=== PATIENT | female | born 1960 | race Caucasian/White ===

== ENCOUNTER 2019-11-30 14:06 | Observation (INO) | payer BC ==
[2019-11-30] MEDS ORDERED: Iron Sucrose Complex 200 MG in Sodium Chloride 0.9% 100 ML IV ONE (14:11)
[2019-11-30] MEDS ORDERED: traMADol 50 MG Tab PO PRN (15:24)
[2019-11-30] MEDS ORDERED: diphenhydrAMINE 50 MG/ML SDV IVPUSH PRN (15:25)
--- NOTE | 2019-11-30 15:28 | PCM.HP.2 ---
H&P History of Present Illness - General Date of Service: 11/30/19 Admit Problem/Dx: Admission Diagnosis/Problem Admission Diagnosis/Problem Anemia due to unknown mechanism - History of Present Illness Initial Comments - Free Text/Narative: See clinic documentation Headache Pain Score (Numeric/FACES): 6 - Related Data Allergies/Adverse Reactions: Allergies Allergy/AdvReac Type Severity Reaction Status Date / Time beclomethasone dipropionate Allergy Anaphylactic Verified 10/24/18 05:40 [From Beconase AQ] Shock bee pollen [Bee Pollen] Allergy Anaphylactic Verified 10/24/18 05:40 Shock clarithromycin [From Biaxin] Allergy Anaphylactic Verified 10/24/18 05:40 Shock flunisolide Allergy Other Verified 10/24/18 05:40 morphine Allergy Anaphylactic Verified 10/24/18 05:40 Shock omeprazole Allergy Hives Verified 10/24/18 05:40 ondansetron HCl Allergy Liver Verified 10/24/18 05:40 [From Zofran (as Problems hydrochloride)] ranitidine Allergy Rash Verified 10/24/18 05:40 Sulfa (Sulfonamide Allergy Anaphylactic Verified 10/24/18 05:40 Antibiotics) Shock sumatriptan [From Imitrex] Allergy Anaphylactic Verified 10/24/18 05:40 Shock sumatriptan succinate Allergy Anaphylactic Verified 10/24/18 05:40 [From Imitrex] Shock Home Medications: Home Meds Albuterol/Ipratropium [DuoNeb 3.0-0.5 MG/3 ML] 0.5 - 2.5 ml INH Q4H PRN [History] Cyclobenzaprine [Flexeril] 10 mg PO TID PRN 04/21/15 [History] FLUoxetine [PROzac] 4 cap PO QAM 04/21/15 [History] Ibuprofen [Motrin] 800 mg PO TID PRN 04/21/15 [History] Levothyroxine 112 mcg PO DAILY 04/21/15 [History] PHENobarb/Hyoscy/Atropine/Scop [ Tablet] 1 tab PO Q8H PRN 04/21/15 [ History] Pantoprazole Sodium [Protonix] 20 mg PO BID 04/21/15 [History] Rizatriptan Benzoate [Maxalt] 5 mg PO ASDIRECTED PRN 03/10/17 [History] Past Medical History Other Musculoskeletal History: Right Bicep tendon tear H&P Review of Systems - Review of Systems: Review Of Systems: See Below Exam - Exam Exam: See Below - Vital Signs Vital Signs: Last Vital Signs Temp 97.8 F 11/30/19 14:10 Pulse 91 11/30/19 14:10 Resp 16 11/30/19 14:10 BP 122/68 11/30/19 14:10 Pulse Ox 100 11/30/19 14:10 - Patient Data Lab Results Last 24 hrs: Laboratory Results - last 24 hr 11/30/19 11/30/19 Range/Units 14:22 14:22 WBC 5.3 (4.0-11.0) K/uL RBC 3.14 L (3.80-5.80) M/uL Hgb 7.5 L (11.5-16.5) g/dL Hct 25.4 L (37.0-47.0) % MCV 81 (76-96) fL MCH 23.9 L (27.0-32.0) pg MCHC 29.5 L (31.0-35.0) g/dL RDW 15.3 (11.0-16.0) % Plt Count 365 (150-500) K/uL MPV 7.9 (6.0-10.0) fL Neut % (Auto) 67.0 (45.0-70.0) % Lymph % (Auto) 21.0 (20.0-40.0) % [place] % (Auto) 7.8 (3.0-10.0) % Eos % (Auto) 3.8 (1.0-5.0) % Baso % (Auto) 0.4 (0.0-0.5) % Neut # (Auto) 3.52 (2.00-7.50) K/uL Lymph # (Auto) 1.10 L (1.50-4.00) K/uL [place] # (Auto) 0.41 (0.20-0.80) K/uL Eos # (Auto) 0.20 (0.04-0.40) K/uL Baso # (Auto) 0.02 (0.02-0.10) K/uL Sodium 139 (136-145) mmol/L Potassium 3.9 (3.5-5.1) mmol/L Chloride 106 (98-107) mmol/L Carbon Dioxide 21.8 (21.0-32.0) mmol/L Anion Gap 15.1 H (5.0-15.0) mmol/L BUN 13 (8-26) mg/dL Creatinine 1.02 (0.55-1.02) mg/dL Est Cr Clr Drug Dosing TNP Estimated GFR (MDRD) 55 L (>60) MLS/MIN BUN/Creatinine Ratio 12.7 (6-25) Glucose 194 H D (74-100) mg/dL Calcium 7.6 L (8.5-10.1) mg/dL Total Bilirubin 0.2 (0.0-1.0) mg/dL AST 21 (15-37) U/L ALT 26 (12-78) U/L Alkaline Phosphatase 69 (46-116) U/L Total Protein 6.1 L (6.4-8.2) g/dL Albumin 2.9 L (3.4-5.0) g/dL Globulin 3.2 (2.2-4.2) g/dL Albumin/Globulin Ratio 0.9 (0.8-2.0) Result Diagrams: 11/30/19 14:22 11/30/19 14:22 Sepsis Event Note - Focused Exam Vital Signs: Vital Signs Temp Pulse Resp BP Pulse Ox 11/30/19 14:10 97.8 F 91 16 122/68 100 Date Exam was Performed: 11/30/19 Time Exam was Performed: 15:26 *Q Meaningful Use (ADM) - VTE *Q VTE Pharmacological Contraindications *Q: Patient has Severe Anemia Problem List Initiated/Reviewed/Updated: Yes Orders Last 24hrs: Active Orders 24 hr Category Date Time Status Admission Status [Patient Status] [ADT] Routine ADT 11/30/19 15:19 Ordered Hemoccult [Fecal Occult Blood Collection] [RC] Care 11/30/19 14:17 Active ASDIRECTED Verify Patient Consent Obtain [RC] ASDIRECTED Care 11/30/19 14:13 Active Regular Diet [DIET] Diet 11/30/19 Dinner Ordered RED BLOOD CELLS LP [BBK] Stat Lab 11/30/19 14:23 Received TYPE AND SCREEN [BBK] Stat Lab 11/30/19 14:23 Received UA RFX CARLOS AND CULT IF INDIC [URIN] Stat Lab 11/30/19 14:17 Ordered HYDROmorphone [Dilaudid] Med 11/30/19 15:22 Ordered 0.25 mg IVPUSH Q3H PRN Sodium Chloride 0.9% [Normal Saline] 1,000 ml Med 11/30/19 14:15 Active IV ASDIRECTED diphenhydrAMINE [Benadryl] Med 11/30/19 15:25 Ordered 25 mg IVPUSH Q6H PRN traMADol [Ultram] Med 11/30/19 15:24 Ordered 50 mg PO Q4H PRN Blood Transfusion Reflex Set [OM.PC] Routine Oth 11/30/19 14:12 Ordered Transfuse Red Blood Cells [COMM] Stat Oth 11/30/19 14:12 Ordered Medication Orders Diphenhydramine HCl (Benadryl) 25 mg IVPUSH Q6H PRN PRN Reason: Itching Hydromorphone HCl (Dilaudid) 0.25 mg IVPUSH Q3H PRN PRN Reason: Pain (moderate 4-6) Sodium Chloride (Normal Saline) 1,000 mls @ 50 mls/hr IV ASDIRECTED STEFAN Tramadol HCl (Ultram) 50 mg PO Q4H PRN PRN Reason: Pain (mild 1-3) - Mortality Measure Prognosis:: Good
[2019-11-30] MEDS: Sodium Chloride 0.9% 1,000 ML IV SCH (15:51)
[2019-11-30] MEDS ORDERED: HYDROmorphone 2 MG/ML SDV ONE ×2 (15:53→19:19)
[2019-11-30] MEDS: HYDROmorphone 2 MG/ML Syringe IVPUSH PRN ×3 (15:55→23:20)
[2019-11-30] MEDS ORDERED: traMADol 50 MG Tab ONE (16:52)
[2019-12-01] MEDS: HYDROmorphone 2 MG/ML Syringe IVPUSH PRN ×2 (02:30→08:43)
[2019-12-01] MEDS: Sodium Chloride 0.9% 1,000 ML IV SCH (06:24)
[2019-12-01] MEDS ORDERED: HYDROmorphone 2 MG/ML SDV ONE (08:38)
[2019-12-01 08:47] VITALS: BP 129/76; PULSE 74
--- NOTE | 2019-12-01 12:40 | DISCH ---
ADMISSION DIAGNOSES: 1. Anemia. 2. Weakness. DISCHARGE DIAGNOSES: 1. Anemia. 2. Weakness. HOSPITAL COURSE: This 58-year-old woman was admitted by Dr. Teran yesterday for significant symptomatic anemia with weakness and dizziness that she had a hemoglobin of 7.5. She has been followed by Dr. Dalal for this. She has history of a gastric bypass and had recently discontinued taking her iron supplements for this. She has a low ferritin level according to Dr. Teran. Her hemoglobin was 7.5 on admission. Her last colonoscopy was over 10 years ago, but nothing significant was found at that time. She has no history of melena or hematemesis. She is on vitamin B12 supplementation and that is being monitored. She received 2 units of packed red cells. Repeat hemoglobin this morning was 9.5, and she was feeling much better with regard to her strength, etc,. Her vital signs remained stable. She showed no evidence of hypotension while in the hospital. She will be followed up as an outpatient and seen by Dr. Dalal later on next week, and a repeat hemoglobin has been requested. It is also noteworthy that her stool hemoccults have not been obtained as she has not had a bowel movement since admission. A kit will therefore be sent home with her and she can provide this from home. All questions were answered. She will resume taking her iron supplements. MAREN /[id number]
== END 2019-12-01 10:07 | disposition home or self-care (01) ==
LOC: LB.BLOODTR 14:06 → LB.MS 15:19
PROVIDERS: ADMIT Family Medicine; ATTEND Family Medicine
DX: D64.9 Anemia, unspecified (principal); Z98.84 Bariatric surgery status; Z98.890 Other specified postprocedural states; Z88.5 Allergy status to narcotic agent; Z88.1 Allergy status to other antibiotic agents; Z91.030 Bee allergy status; Z88.8 Allergy status to other drugs, medicaments and biological substances; Z88.2 Allergy status to sulfonamides; Z79.899 Other long term (current) drug therapy
CPT/HCPCS: 36415; 36430; 80053; 81003; 82310; 85018; 85025; 86850; 86900; 86901; 86920; 86922; 96361; 96365; 96375; 96376; A9270-GY; G0378; J1170; J1756; J7030; J7050; P9016

== ENCOUNTER 2019-12-14 12:02 | Day surgery (SDC) | payer BC ==
[~2019-12-14 12:02] MED LIST: Metoclopramide 10 MG/2 ML SDV IV PRN
[2019-12-14] MEDS: Sodium Chloride 0.9% 1,000 ML IV SCH (12:35)
[2019-12-14] MEDS ORDERED: ePHEDrine 50 MG/ML SDV ONE (14:20)
[2019-12-14] MEDS ORDERED: Propofol 1,000 MG/100 ML SDV ONE (14:20)
[2019-12-14 15:00] VITALS: BP 144/59; PULSE 86
[2019-12-14] MEDS: Pneumococcal Polyvalent-23 Vaccine 0.5 ML SDV IM ONE (16:08)
--- NOTE | 2019-12-14 20:50 | OR ---
DATE OF OPERATION: 12/14/2019 SURGEON: Odell Pedraza MD PREOPERATIVE DIAGNOSIS: Screening colonoscopy. POSTOPERATIVE DIAGNOSIS: Screening colonoscopy. PROCEDURE PERFORMED: Screening colonoscopy/incomplete colonoscopy. ANESTHESIA: MAC. ESTIMATED BLOOD LOSS: None. COMPLICATIONS: None. INDICATION FOR THE PROCEDURE: The patient is a 59-year-old female who last had a colonoscopy 12 years ago. Denies any change in bowel habits since that time. She is here today for screening colonoscopy. DESCRIPTION OF THE PROCEDURE: Informed consent was obtained from the patient. The patient was taken to the operating room and placed on the table in left lateral decubitus position. Monitored anesthesia care was administered. Digital rectal exam performed and was normal. Colonoscope then advanced through the anus, directed toward the cecum, did reach the sigmoid colon, unable to negotiate through the sigmoid colon, had quite tight corner, adult colonoscope then withdrawn. The pediatric colonoscope then reinserted. I was able to reach the same corner in the sigmoid colon again, unable to negotiate past it. The patient was flipped back on her back, still unable to get through, some time was spent trying to negotiate this corner, however eventually aborted the procedure. Colonoscope was then withdrawn. Rectum and distal sigmoid were normal. FINDINGS: Incomplete colonoscopy. RECOMMENDATIONS: We will set up patient for CT colonography in [place] at a later date. ALBERTO/LEYDA /[id number]
== END 2019-12-14 15:40 | disposition home or self-care (01) ==
LOC: LB.SDS 12:02
PROVIDERS: ATTEND Surgery
DX: Z12.11 Encounter for screening for malignant neoplasm of colon (principal); D50.9 Iron deficiency anemia, unspecified; Z88.8 Allergy status to other drugs, medicaments and biological substances; Z88.2 Allergy status to sulfonamides; Z79.899 Other long term (current) drug therapy; Z90.49 Acquired absence of other specified parts of digestive tract; Z98.890 Other specified postprocedural states
CPT/HCPCS: 45330; G0121; J2704; J7030

== ENCOUNTER 2020-06-22 13:23 | Emergency (ER) | payer BC, OTHER ==
--- NOTE | 2020-06-22 13:55 | EDM.PDOC ---
ED HPI GENERAL MEDICAL PROBLEM - General Chief Complaint: Lower Extremity Injury/Pain Stated Complaint: Right Foot Pain Time Seen by Provider: 06/22/20 13:45 Source of Information: Reports: Patient History Limitations: Reports: No Limitations - History of Present Illness INITIAL COMMENTS - FREE TEXT/NARRATIVE: Pt is s/o right foot 1st MT surgery beginning of May. Wound dehisced a few weeks later and pt wound was steri-stripped and casted. She has been following with [facility] who had her Augmentin for 10 days. A new cast was applied 2 days ago and steri-strips came off and dressing and now cast his rubbing against her skin. She is afraid of new infection as a result. Onset: Today Quality: Reports: Pressure Severity: Mild Improves with: Reports: Rest Worsens with: Reports: Movement Associated Symptoms: Reports: No Other Symptoms. Denies: Fever/Chills - Related Data Allergies Allergy/AdvReac Type Severity Reaction Status Date / Time beclomethasone dipropionate Allergy Anaphylactic Verified 12/12/19 11:10 [From Beconase AQ] Shock bee pollen [Bee Pollen] Allergy Anaphylactic Verified 12/12/19 11:10 Shock clarithromycin [From Biaxin] Allergy Anaphylactic Verified 12/12/19 11:10 Shock flunisolide Allergy Other Verified 12/12/19 11:10 morphine Allergy Anaphylactic Verified 12/12/19 11:10 Shock omeprazole Allergy Hives Verified 12/12/19 11:10 ondansetron HCl Allergy Liver Verified 12/12/19 11:10 [From Zofran (as Problems hydrochloride)] ranitidine Allergy Rash Verified 12/12/19 11:10 Sulfa (Sulfonamide Allergy Anaphylactic Verified 12/12/19 11:10 Antibiotics) Shock sumatriptan [From Imitrex] Allergy Anaphylactic Verified 12/12/19 11:10 Shock sumatriptan succinate Allergy Anaphylactic Verified 12/01/19 03:59 [From Imitrex] Shock Home Meds: Home Meds Cyclobenzaprine [Flexeril] 10 mg PO TID PRN 04/21/15 [History] FLUoxetine [PROzac] 2 cap PO QAM 04/21/15 [History] Ibuprofen [Motrin] 800 mg PO TID PRN 04/21/15 [History] Levothyroxine 137 mcg PO DAILY 04/21/15 [History] Pantoprazole Sodium [Protonix] 20 mg PO DAILY 04/21/15 [History] Calcium Carbonate/Vitamin D3 [Caltrate 600 Plus D3 Tablet] 1 tab PO DAILY 11/30/19 [History] Iron,Carbonyl/Ascorbic Acid [Vitron-C Tablet] 1 each PO DAILY 12/12/19 [History] Mecobalamin [B12 Active] 500 mcg PO DAILY 12/12/19 [History] Past Medical History HEENT History: Reports: Other (See Below) Other HEENT History: six sinus surgeries Respiratory History: Reports: Asthma, Pneumonia, Recurrent Gastrointestinal History: Reports: Other (See Below) Other Gastrointestinal History: Gastric bypass 2002 Genitourinary History: Reports: Other (See Below) Other Genitourinary History: 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: Musculoskeletal History: Reports: Fibromyalgia, Other (See Below) Other Musculoskeletal History: Right Bicep tendon tear Foot surgery Neurological History: Reports: Migraines, Other (See Below) Other Neuro History: Restless legs Psychiatric History: Reports: Depression Endocrine/Metabolic History: Reports: Hypothyroidism Hematologic History: Reports: Blood Transfusion(s), Iron Deficiency, Other (See Below) Dermatologic History: Reports: Other (See Below) Other Dermatologic History: scratches on right arm - Past Surgical History HEENT Surgical History: Reports: Naso-Sinus Surgery GI Surgical History: Reports: Colonoscopy Endocrine Surgical History: Reports: None Dermatological Surgical History: Reports: None Social & Family History - Family History Family Medical History: Noncontributory - Caffeine Use Caffeine Use: Reports: Coffee Review of Systems - Review of Systems Review Of Systems: See Below Constitutional: Reports: No Symptoms. Denies: Fever Respiratory: Reports: No Symptoms Cardiovascular: Reports: No Symptoms GI/Abdominal: Reports: No Symptoms Musculoskeletal: Reports: Foot Pain, Joint Pain Skin: Reports: Wound Neurological: Reports: No Symptoms ED EXAM, GENERAL - Physical Exam Exam: See Below Exam Limited By: No Limitations General Appearance: Alert, WD/WN, No Apparent Distress Head: Atraumatic, Normocephalic Neck: Normal Inspection, Supple Respiratory/Chest: No Respiratory Distress, Lungs Clear Cardiovascular: Normal Peripheral Pulses, Regular Rate, Rhythm Neurological: Alert, Oriented, CN II-XII Intact Psychiatric: Normal Affect Skin Exam: Warm, Dry, Normal Color Course - Vital Signs Last Recorded V/S: Last Vital Signs Temp 97.7 F 06/22/20 14:00 Pulse 81 06/22/20 14:00 Resp 16 06/22/20 14:00 BP 133/75 06/22/20 14:00 Pulse Ox 100 06/22/20 14:00 - Re-Assessments/Exams Free Text/Narrative Re-Assessment/Exam: 06/22/20 14:03 Pt had cast removed and wound evaluated, no evidence of infection, no redness, no swelling. Pt's had splint replacement and bulky dressing for padding as well as steri- strip across surgical site. Departure - Departure Time of Disposition: 14:06 Disposition: Home, Self-Care 01 Condition: Good Clinical Impression: Encounter for post surgical wound check - Discharge Information *PRESCRIPTION DRUG MONITORING PROGRAM REVIEWED*: No *COPY OF PRESCRIPTION DRUG MONITORING REPORT IN PATIENT GALINA: No Referrals: Darshana Biswas RN [Primary Care Provider] - Forms: ED Department Discharge Sepsis Event Note (ED) - Focused Exam Vital Signs: Vital Signs Temp Pulse Resp BP Pulse Ox 06/22/20 14:00 97.7 F 81 16 133/75 100
[2020-06-22 14:02] VITALS: BP 133/75; PULSE 81
== END 2020-06-22 14:45 | disposition home or self-care (01) ==
LOC: LB.ED 13:23
DX: Z48.817 Encounter for surgical aftercare following surgery on the skin and subcutaneous tissue (principal); J45.909 Unspecified asthma, uncomplicated; F32.9 Major depressive disorder, single episode, unspecified; E03.9 Hypothyroidism, unspecified; Z88.8 Allergy status to other drugs, medicaments and biological substances; Z91.030 Bee allergy status; Z88.1 Allergy status to other antibiotic agents; Z88.5 Allergy status to narcotic agent; Z88.2 Allergy status to sulfonamides; Z79.899 Other long term (current) drug therapy
CPT/HCPCS: 99282

== ENCOUNTER 2020-11-23 05:17 | Emergency (ER) | payer BC ==
[2020-11-23] MEDS ORDERED: Ketorolac 60 MG/2 ML SDV IVPUSH ONE (07:32)
[2020-11-23] MEDS ORDERED: HYDROmorphone 2 MG/ML SDV IVPUSH ONE ×2 (07:33→09:48)
[2020-11-23] MEDS ORDERED: LORazepam 0.5 MG Tab PO ONE (07:49)
[2020-11-23 08:29] VITALS: BP 104/56
[2020-11-23] MEDS ORDERED: HYDROmorphone 2 MG/ML SDV ONE (09:55)
[2020-11-23] MEDS ORDERED: Acetaminophen/HYDROcodone 325-5 MG Tab ONE (13:00)
[2020-11-23 13:07] VITALS: PULSE 89
--- NOTE | 2020-11-23 13:10 | EDM.PDOC ---
ED HPI GENERAL MEDICAL PROBLEM - General Chief Complaint: Upper Extremity Injury/Pain Stated Complaint: Left Shoulder Pain Time Seen by Provider: 11/23/20 07:00 Source of Information: Reports: Patient History Limitations: Reports: No Limitations. Denies: Altered Mental Status - History of Present Illness INITIAL COMMENTS - FREE TEXT/NARRATIVE: Patient presented to ER at 7 am with c/o left shoulder pain. Rates pain a 10. States something happened on night while sleeping. She has been scheduled for surgery on December 05. During Wednesday she had to take a total of 2 vicoden, a motrin, flexeril before any relief. States this is unbearable at this time . The pain is sharp ,constant & does not radiates . denies fever ,N/V ,chest pain ,shortness of breath ,cough , wheezing, abdominal pain Onset: Today, Sudden (2) Treatments SLING OPERATOR: Reports: NSAIDS, Other (see below) Other Treatments SLING OPERATOR: vicoden Left Upper Shoulder Pain Score (Numeric/FACES): 5 - Related Data Allergies Allergy/AdvReac Type Severity Reaction Status Date / Time beclomethasone dipropionate Allergy Anaphylactic Verified 12/12/19 11:10 [From Beconase AQ] Shock bee pollen [Bee Pollen] Allergy Anaphylactic Verified 12/12/19 11:10 Shock clarithromycin [From Biaxin] Allergy Anaphylactic Verified 12/12/19 11:10 Shock flunisolide Allergy Other Verified 12/12/19 11:10 morphine Allergy Anaphylactic Verified 12/12/19 11:10 Shock omeprazole Allergy Hives Verified 12/12/19 11:10 ondansetron HCl Allergy Liver Verified 12/12/19 11:10 [From Zofran (as Problems hydrochloride)] ranitidine Allergy Rash Verified 12/12/19 11:10 Sulfa (Sulfonamide Allergy Anaphylactic Verified 12/12/19 11:10 Antibiotics) Shock sumatriptan [From Imitrex] Allergy Anaphylactic Verified 12/12/19 11:10 Shock sumatriptan succinate Allergy Anaphylactic Verified 12/01/19 03:59 [From Imitrex] Shock Home Meds: Home Meds Cyclobenzaprine [Flexeril] 10 mg PO TID PRN 04/21/15 [History] FLUoxetine [PROzac] 2 cap PO QAM 04/21/15 [History] Ibuprofen [Motrin] 800 mg PO TID PRN 04/21/15 [History] Levothyroxine 137 mcg PO DAILY 04/21/15 [History] Pantoprazole Sodium [Protonix] 20 mg PO DAILY 04/21/15 [History] Calcium Carbonate/Vitamin D3 [Caltrate 600 Plus D3 Tablet] 1 tab PO DAILY 11/30/19 [History] Iron,Carbonyl/Ascorbic Acid [Vitron-C Tablet] 1 each PO DAILY 12/12/19 [History] Mecobalamin [B12 Active] 500 mcg PO DAILY 12/12/19 [History] Acetaminophen/HYDROcodone [[place] 325-5 MG] 1 tab PO 11/23/20 [History] Cholecalciferol (Vitamin D3) [Vitamin D] 1 tab PO DAILY 11/23/20 [History] Past Medical History HEENT History: Reports: Other (See Below) Other HEENT History: six sinus surgeries Respiratory History: Reports: Asthma, Pneumonia, Recurrent Gastrointestinal History: Reports: Other (See Below) Other Gastrointestinal History: Gastric bypass 2002 Genitourinary History: Reports: Other (See Below) Other Genitourinary History: 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: Musculoskeletal History: Reports: Fibromyalgia, Other (See Below) Other Musculoskeletal History: Right Bicep tendon tear Foot surgery, Torn AC left shoulder Neurological History: Reports: Migraines, Other (See Below) Other Neuro History: Restless legs Psychiatric History: Reports: Depression Endocrine/Metabolic History: Reports: Hypothyroidism Hematologic History: Reports: Blood Transfusion(s), Iron Deficiency, Other (See Below) Dermatologic History: Reports: Other (See Below) Other Dermatologic History: scratches on right arm - Infectious Disease History Infectious Disease History: Reports: Chicken Pox, Mumps - Past Surgical History HEENT Surgical History: Reports: Naso-Sinus Surgery GI Surgical History: Reports: Colonoscopy Endocrine Surgical History: Reports: None Dermatological Surgical History: Reports: None Social & Family History - Family History Family Medical History: No Pertinent Family History - Tobacco Use Tobacco Use Status *Q: Never Tobacco User - Caffeine Use Caffeine Use: Reports: Coffee - Recreational Drug Use Recreational Drug Use: No Review of Systems - Review of Systems Review Of Systems: See Below Constitutional: Reports: No Symptoms Respiratory: Reports: No Symptoms, Shortness of Breath, Wheezing, Cough, Sputum Cardiovascular: Reports: No Symptoms, Chest Pain, Irregular Heart Rate GI/Abdominal: Reports: No Symptoms Genitourinary: Reports: No Symptoms Musculoskeletal: Reports: Shoulder Pain (sharp pain located on left shoulder ) ED EXAM, GENERAL - Physical Exam Exam: See Below Exam Limited By: No Limitations General Appearance: Alert, WD/WN, No Apparent Distress Head: Atraumatic, Normocephalic Neck: Normal Inspection Respiratory/Chest: No Respiratory Distress, Lungs Clear, Normal Breath Sounds, No Accessory Muscle Use, Chest Non-Tender Cardiovascular: Normal Peripheral Pulses, Regular Rate, Rhythm, No Edema, No Gallop, No JVD, No Murmur, No Rub GI/Abdominal: Normal Bowel Sounds Extremities: Other (no swelling or redness of left shoulder,tenderness present on left shoulder ) Neurological: Alert, Oriented, CN II-XII Intact Course - Vital Signs Text/Narrative:: 59 year old female came with left shoulder pain Vitals monitored X ray done that shows severe osteoarthritic changes . Patient was in sever pain ,I gave her iv Toradol. wait for some time for some improvement ,but pain did not subside I gave her 2 mg of Dilaudid I/V ,there is some improvement - 0.5 mg given orally - she went into sleep inj Dilaudid 2mg repeated . The pain is reduced . discuss with patient that we are sending her home Vicodin as needed Last Recorded V/S: Last Vital Signs Temp 96.7 F L 11/23/20 07:36 Pulse 89 11/23/20 13:07 Resp 14 11/23/20 13:07 BP 104/56 L 11/23/20 08:26 Pulse Ox 96 11/23/20 13:07 - Orders/Labs/Meds Orders: Active Orders 24 hr Category Date Time Status Shoulder Comp Lt [CR] Stat Exams 11/23/20 12:52 Taken Meds: Medications Discontinued Medications Generic Name Dose Route Start Last Admin Trade Name Freq PRN Reason Stop Dose Admin Hydromorphone HCl 2 mg 11/23/20 07:33 11/23/20 07:34 Dilaudid IVPUSH 11/23/20 07:34 2 mg ONETIME ONE Administration Hydromorphone HCl 2 mg 11/23/20 09:48 11/23/20 09:51 Dilaudid IVPUSH 11/23/20 09:49 2 mg ONETIME ONE Administration Hydromorphone HCl Confirm 11/23/20 09:55 11/23/20 09:49 Dilaudid Administered 11/23/20 09:56 Not Given Dose 2 mg .ROUTE .STK-MED ONE Ketorolac Tromethamine 15 mg 11/23/20 07:32 11/23/20 07:34 Toradol IVPUSH 11/23/20 07:33 15 mg ONETIME ONE Administration Lorazepam 0.5 mg 11/23/20 07:49 11/23/20 07:49 Ativan PO 11/23/20 07:50 0.5 mg ONETIME ONE Administration Departure - Departure Time of Disposition: 14:00 Disposition: Home, Self-Care 01 Condition: Fair Clinical Impression: Shoulder pain Qualifiers: Chronicity: acute Laterality: left Qualified Code(s): M25.512 - Pain in left shoulder - Discharge Information *PRESCRIPTION DRUG MONITORING PROGRAM REVIEWED*: No *COPY OF PRESCRIPTION DRUG MONITORING REPORT IN PATIENT GALINA: No Instructions: Acetaminophen; Hydrocodone tablets or capsules, Shoulder Pain Referrals: PCP,None [Primary Care Provider] - Forms: ED Department Discharge Care Plan Goals: Take one vicoden every 4 hours as directed. Sepsis Event Note (ED) - Evaluation Sepsis Screening Result: No Definite Risk - Focused Exam Vital Signs: Vital Signs Temp Pulse Resp BP Pulse Ox 11/23/20 13:07 89 14 96 11/23/20 08:48 14 97 11/23/20 08:26 107 H 14 104/56 L 94 L 11/23/20 07:36 96.7 F L 103 H 16 104/59 L 99 - Problem List & Annotations (1) Shoulder pain, left SNOMED Code(s): 46634212, [id number] Code(s): M25.512 - PAIN IN LEFT SHOULDER Status: Acute Priority: Medium Annotation/Comment:: take pain medication only when needed Qualifiers: Chronicity: acute Qualified Code(s): M25.512 - Pain in left shoulder - My Orders Last 24 Hours: My Active Orders 11/23/20 12:52 Shoulder Comp Lt [CR] Stat - Assessment/Plan Last 24 Hours: My Active Orders 11/23/20 12:52 Shoulder Comp Lt [CR] Stat
--- NOTE | 2020-11-25 07:12 | CR ---
Date of Service: 11/23/20 Clinical Data: pain LEFT SHOULDER: No priors. There are severe osteoarthritic changes of the glenohumeral joint. There are osteoarthritic changes of the AC joint. No acute fracture or dislocation. No focal lytic or blastic bone lesions. [id number] [facility]
== END 2020-11-23 13:30 | disposition home or self-care (01) ==
LOC: LB.ED 05:17
DX: M25.512 Pain in left shoulder (principal); J45.909 Unspecified asthma, uncomplicated; E03.9 Hypothyroidism, unspecified; Z88.8 Allergy status to other drugs, medicaments and biological substances; Z91.030 Bee allergy status; Z88.1 Allergy status to other antibiotic agents; Z88.5 Allergy status to narcotic agent; Z88.2 Allergy status to sulfonamides; Z79.899 Other long term (current) drug therapy
CPT/HCPCS: 73030; 96374; 96375; 96376; 99283; A9270; J1170; J1885; 99284

== ENCOUNTER 2021-05-29 18:14 | Emergency (ER) | payer BC ==
[2021-05-29] MEDS ORDERED: HYDROmorphone 4 MG/ML Syringe SUBCUT PRN (18:28)
[2021-05-29] MEDS: HYDROmorphone 4 MG/ML Syringe SUBCUT ONE (18:30)
[2021-05-29 18:35] VITALS: BP 137/86; PULSE 77
[2021-05-29] MEDS: Ondansetron 4 MG Tab.DIS PO ONE (18:36)
[2021-05-29] MEDS ORDERED: Sodium Chloride 0.9% 10 ML Syringe FLUSH PRN (18:51)
[2021-05-29] MEDS: Ketorolac 60 MG/2 ML SDV IVPUSH ONE (18:58)
[2021-05-29] MEDS ORDERED: Acetaminophen/oxyCODONE 325-5 MG Tab ONE (19:00)
[2021-05-29] MEDS: HYDROmorphone 2 MG/ML SDV IVPUSH ONE (19:01)
[2021-05-29] MEDS: HYDROmorphone 2 MG/ML SDV ONE (19:05)
--- NOTE | 2021-05-29 19:14 | EDM.PDOC ---
ED HPI GENERAL MEDICAL PROBLEM - General Chief Complaint: Upper Extremity Injury/Pain Stated Complaint: Left shoulder pain Time Seen by Provider: 05/29/21 18:30 - History of Present Illness INITIAL COMMENTS - FREE TEXT/NARRATIVE: Patient comes to the ER with family members with complaints of an acute injury to the left shoulder. She tells me that she had reconstructive shoulder surgery last November, and things had been going fairly well. She knows that she is been overdoing it lately due to multiple issues involving her family. Today she was in the restroom taking down her pants when a sharp painful sensation happened on the posterior lateral aspect of the left shoulder. It seems to radiate towards the middle of her back and there is a zinging sensation going part way down her arm. She states that the pain is currently 9 or 10/10. Patient is unable to move her left arm. She denies any numbness or discoloration of the forearm hand or fingers. Patient has been taking ibuprofen 400 mg a couple of times today only for pain control. Left Shoulder Pain Score (Numeric/FACES): 10 - Related Data Allergies Allergy/AdvReac Type Severity Reaction Status Date / Time beclomethasone dipropionate Allergy Anaphylactic Verified 05/29/21 18:30 [From Beconase AQ] Shock bee pollen [Bee Pollen] Allergy Anaphylactic Verified 05/29/21 18:30 Shock clarithromycin [From Biaxin] Allergy Anaphylactic Verified 05/29/21 18:30 Shock flunisolide Allergy Other Verified 05/29/21 18:30 morphine Allergy Anaphylactic Verified 05/29/21 18:30 Shock omeprazole Allergy Hives Verified 05/29/21 18:30 ondansetron HCl Allergy Liver Verified 05/29/21 18:30 [From Zofran (as Problems hydrochloride)] ranitidine Allergy Rash Verified 05/29/21 18:30 Sulfa (Sulfonamide Allergy Anaphylactic Verified 05/29/21 18:30 Antibiotics) Shock sumatriptan [From Imitrex] Allergy Anaphylactic Verified 05/29/21 18:30 Shock sumatriptan succinate Allergy Anaphylactic Verified 05/29/21 18:30 [From Imitrex] Shock Home Meds: Home Meds Cyclobenzaprine [Flexeril] 10 mg PO TID PRN 04/21/15 [History] FLUoxetine [PROzac] 2 cap PO QAM 04/21/15 [History] Ibuprofen [Motrin] 800 mg PO TID PRN 04/21/15 [History] Levothyroxine 137 mcg PO DAILY 04/21/15 [History] Pantoprazole Sodium [Protonix] 20 mg PO DAILY 04/21/15 [History] Calcium Carbonate/Vitamin D3 [Caltrate 600 Plus D3 Tablet] 1 tab PO DAILY 11/30/19 [History] Iron,Carbonyl/Ascorbic Acid [Vitron-C Tablet] 1 each PO DAILY 12/12/19 [History] Mecobalamin [B12 Active] 500 mcg PO DAILY 12/12/19 [History] Acetaminophen/HYDROcodone [HYDROcodone-Acetaminophen 5-525 MG *] 1 tab PO 11/23/20 [History] Cholecalciferol (Vitamin D3) [Vitamin D] 1 tab PO DAILY 11/23/20 [History] Past Medical History HEENT History: Reports: Other (See Below) Other HEENT History: six sinus surgeries Respiratory History: Reports: Asthma, Pneumonia, Recurrent Gastrointestinal History: Reports: Other (See Below) Other Gastrointestinal History: Gastric bypass 2002 Genitourinary History: Reports: Other (See Below) Other Genitourinary History: Hypoglycemic 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: Musculoskeletal History: Reports: Fibromyalgia, Other (See Below) Other Musculoskeletal History: Right Bicep tendon tear Foot surgery, Torn AC left shoulder Neurological History: Reports: Migraines, Other (See Below) Other Neuro History: Restless legs Psychiatric History: Reports: Depression Endocrine/Metabolic History: Reports: Hypothyroidism Hematologic History: Reports: Blood Transfusion(s), Iron Deficiency, Other (See Below) Dermatologic History: Reports: Other (See Below) Other Dermatologic History: scratches on right arm - Infectious Disease History Infectious Disease History: Reports: Chicken Pox, Mumps - Past Surgical History HEENT Surgical History: Reports: Naso-Sinus Surgery GI Surgical History: Reports: Colonoscopy Endocrine Surgical History: Reports: None Musculoskeletal Surgical History: Reports: Shoulder Surgery Other Musculoskeletal Surgeries/Procedures:: Right RTC repair. Left reverse TSA Dermatological Surgical History: Reports: None Social & Family History - Family History Family Medical History: No Pertinent Family History - Caffeine Use Caffeine Use: Reports: Coffee Review of Systems - Review of Systems Review Of Systems: Comprehensive ROS is negative, except as noted in HPI. Musculoskeletal: Reports: Other (Left shoulder pain.) ED EXAM, GENERAL - Physical Exam Exam: See Below Free Text/Narrative:: Patient is awake and alert she is obviously uncomfortable from the pain. She is holding her left arm in a guarded fashion across her abdomen inside of her dress. Vital signs are reviewed as listed. Examining the left shoulder reveals a well-healed scar on the anterior aspect of the shoulder the patient is pointing to the lateral posterior aspect of the shoulder and going in a medial direction when describing the area of pain. The skin is intact here I do not see any swelling or discoloration. I did not even try to have the patient move her arm or shoulder at this time. Skin is warm and dry. Lungs are clear. Cardiac heart sounds distinct S1-S2 present without murmurs. Course - Vital Signs Last Recorded V/S: Last Vital Signs Temp 97.2 F 05/29/21 18:42 Pulse 77 05/29/21 18:42 Resp 18 05/29/21 18:42 BP 137/86 05/29/21 18:42 Pulse Ox 98 05/29/21 18:42 - Orders/Labs/Meds Orders: Active Orders 24 hr Category Date Time Status Shoulder Comp Lt [CR] Stat Exams 05/29/21 18:31 Taken Sodium Chloride 0.9% [Saline Flush] Med 05/29/21 18:51 Active 10 ml FLUSH ASDIRECTED PRN Saline Lock Insert [OM.PC] Routine Oth 05/29/21 18:51 Ordered Medication Orders Sodium Chloride (Sodium Chloride 0.9% 10 Ml Syringe) 10 ml FLUSH ASDIRECTED PRN PRN Reason: Keep Vein Open Meds: Medications Generic Name Dose Route Start Last Admin Trade Name Freq PRN Reason Stop Dose Admin Sodium Chloride 10 ml 05/29/21 18:51 Sodium Chloride 0.9% 10 Ml Syringe FLUSH ASDIRECTED PRN Keep Vein Open Discontinued Medications Generic Name Dose Route Start Last Admin Trade Name Freq PRN Reason Stop Dose Admin Hydromorphone HCl 1 mg 05/29/21 18:28 Hydromorphone 4 Mg/Ml Syringe SUBCUT Q4H PRN Pain Hydromorphone HCl 1 mg 05/29/21 18:30 05/29/21 18:30 Hydromorphone 4 Mg/Ml Syringe SUBCUT 05/29/21 18:31 1 mg ONETIME ONE Administration Hydromorphone HCl 1 mg 08/12/21 18:52 05/29/21 19:01 Hydromorphone 2 Mg/Ml Sdv IVPUSH 05/29/21 18:53 1 mg ONETIME ONE Administration Hydromorphone HCl Confirm 05/29/21 19:11 05/29/21 19:05 Hydromorphone 2 Mg/Ml Sdv Administered 05/29/21 19:12 Not Given Dose 2 mg .ROUTE .STK-MED ONE Ketorolac Tromethamine 15 mg 05/29/21 18:51 05/29/21 18:58 Ketorolac 60 Mg/2 Ml Sdv IVPUSH 05/29/21 18:52 15 mg ONETIME ONE Administration Ondansetron HCl 4 mg 05/29/21 18:30 05/29/21 18:36 Ondansetron 4 Mg Tab.Dis PO 05/29/21 18:31 Not Given ONETIME ONE - Re-Assessments/Exams Free Text/Narrative Re-Assessment/Exam: 05/29/21 19:26 Patient was given Dilaudid 1 mg subcu and this did bring her pain down temporarily until she had to move her shoulder for x-rays. She states that now it hurts back in the 9-10 range. We did give her 1 more dose of Dilaudid IV 1 mg and 15 mg of Toradol IV. After watching the patient for another 15 minutes or so she states that her pain is now down to a 6 or less and she is feeling almost comfortable. She will be discharged home with a sling she is to use ice packs over the area of involvement. I will give her Percocet to take for pain control, and she is to continue using ibuprofen as well. She is to follow-up with Ortho in the morning with Dr. BARLOW did the surgery in November and she will contact his office in the morning for a follow-up appointment. Patient has no further questions. Departure - Departure Time of Disposition: 19:30 Disposition: Home, Self-Care 01 Condition: Good Clinical Impression: Injury of shoulder, left Qualifiers: Encounter type: initial encounter Qualified Code(s): S49.92XA - Unspecified injury of left shoulder and upper arm, initial encounter - Discharge Information *PRESCRIPTION DRUG MONITORING PROGRAM REVIEWED*: Not Applicable *COPY OF PRESCRIPTION DRUG MONITORING REPORT IN PATIENT [place]: Not Applicable Forms: ED Department Discharge Sepsis Event Note (ED) - Focused Exam Vital Signs: Vital Signs Temp Pulse Resp BP Pulse Ox 05/29/21 18:42 97.2 F 77 18 137/86 98 05/29/21 18:30 97.2 F 77 18 137/86 98 - My Orders Last 24 Hours: My Active Orders 05/29/21 18:31 Shoulder Comp Lt [CR] Stat 05/29/21 18:51 Sodium Chloride 0.9% [Saline Flush] 10 ml FLUSH ASDIRECTED PRN Saline Lock Insert [OM.PC] Routine - Assessment/Plan Last 24 Hours: My Active Orders 05/29/21 18:31 Shoulder Comp Lt [CR] Stat 05/29/21 18:51 Sodium Chloride 0.9% [Saline Flush] 10 ml FLUSH ASDIRECTED PRN Saline Lock Insert [OM.PC] Routine
--- NOTE | 2021-05-30 12:09 | CR ---
DATE OF SERVICE: 05/29/21 CLINICAL DATA: Shoulder injury. LEFT SHOULDER: Comparison is made to a prior exam dated 12/16/20. The patient is status post left total shoulder arthroplasty. The prosthesis appears intact. No acute abnormalities. [id number] [facility]
== END 2021-05-29 19:40 | disposition home or self-care (01) ==
LOC: LB.ED 18:14
DX: S49.92XA Unspecified injury of left shoulder and upper arm, initial encounter (principal); E03.9 Hypothyroidism, unspecified; K21.9 Gastro-esophageal reflux disease without esophagitis; J45.909 Unspecified asthma, uncomplicated; Z88.1 Allergy status to other antibiotic agents; Z88.5 Allergy status to narcotic agent; Z88.2 Allergy status to sulfonamides; Z88.8 Allergy status to other drugs, medicaments and biological substances; Z79.899 Other long term (current) drug therapy; Z91.030 Bee allergy status; X58.XXXA Exposure to other specified factors, initial encounter
CPT/HCPCS: 73030-LT; 96372; 96374; 96375; 99283-25; A9270-GY; J1170; J1885

== ENCOUNTER 2025-08-22 18:17 | Emergency (ER) | payer OTHER, MEDICARE ==
[2025-08-22 18:39] LABS: MEAN PLATELET VOLUME 8.4 fL (6.0-10.0); PLATELET COUNT,PLT 311.0 K/uL (150-500); RED BLOOD CELL COUNT 3.9 M/uL (3.80-5.80); RED CELL DISTRIBUTION WIDTH 12.9 % (11.0-16.0); WHITE BLOOD CELL COUNT,WBC 8.8 K/uL (4.0-11.0)
[2025-08-22] MEDS ORDERED: Sodium Chloride 0.9% 10 ML Syringe FLUSH PRN (18:58)
[2025-08-22 19:02] LABS: CARBON DIOXIDE,CO2 20.0 mmol/L (21.0-32.0); CHLORIDE,CL 102.0 mmol/L (98-107); POTASSIUM,K 3.8 mmol/L (3.5-5.1); SODIUM,NA 135.0 mmol/L (136-145)
[2025-08-22 19:03] VITALS: PULSE 94
[2025-08-22 19:07] LABS: BLOOD UREA NITROGEN,BUN 18.0 mg/dL (8-26); CREATININE 0.88 mg/dL (0.55-1.02); EST CRCL DRUG DOSING (CG) 45.17 mL/min; ESTIMATED GFR 72.0 mL/min (>60); GLUCOSE RANDOM 114.0 mg/dL (74-100)
[2025-08-22] MEDS: Norepinephrine Bit/0.9% NaCl 4 MG/250 ML BAG IV SCH (19:35)
[2025-08-22] MEDS: fentaNYL 100 MCG/2 ML SDV IVPUSH PRN (20:07)
[2025-08-22] MEDS: Sodium Chloride 0.9% 50 ML SDV FLUSH SCH (21:00)
[2025-08-22] MEDS: Iopamidol 612 MG/ML 100 ML Bottle IV PRN (21:00)
[2025-08-22 21:04] LABS: APPEARANCE,URINE CLEAR (CLEAR); GLUCOSE,URINE NEGATIVE (NEGATIVE); OCCULT BLOOD,URINE TRACE-INTACT (NEGATIVE)
[2025-08-22 21:09] LABS: WBC CLUMPS,URINE RARE /HPF
[2025-08-22 21:10] LABS: EPITHELIAL CELLS,URINE FEW /HPF; SQUAMOUS EPITHELIAL CELLS,UR FEW /HPF
[2025-08-22 21:49] VITALS: BP 106/57
== END 2025-08-22 21:25 ==
LOC: LB.ED 18:17
DX: S70.02XA Contusion of left hip, initial encounter (principal); S70.12XA Contusion of left thigh, initial encounter; I95.89 Other hypotension; R58 Hemorrhage, not elsewhere classified; R57.8 Other shock; E03.9 Hypothyroidism, unspecified; Z88.2 Allergy status to sulfonamides; Z88.5 Allergy status to narcotic agent; Z91.030 Bee allergy status; Z88.8 Allergy status to other drugs, medicaments and biological substances; Z79.890 Hormone replacement therapy; Z79.899 Other long term (current) drug therapy; V49.3XXA Car occupant (driver) (passenger) injured in unspecified nontraffic accident, initial encounter
CPT/HCPCS: 36415; 36430; 70450; 71045; 71260; 72125; 73070-LT; 73552-LT; 73700-LT; 74177; 80048; 80307; 81001; 84443; 84484; 85027; 86850; 86900; 86901; 86920; 86922; 87086; 93005; 93010; 96361; 96365; 96367; 96375; 96376; 99285; 99285-25; A0425; A0429; J1171; J3010; J7030; P9016; P9017; Q9967

== ENCOUNTER 2025-09-28 13:24 | Emergency (ER) | payer OTHER, MEDICARE ==
[2025-09-28 15:44] VITALS: BP 114/78; PULSE 74
== END 2025-09-28 15:25 | disposition home or self-care (01) ==
LOC: LB.ED 13:24
DX: S70.12XA Contusion of left thigh, initial encounter (principal); D64.9 Anemia, unspecified; E88.09 Other disorders of plasma-protein metabolism, not elsewhere classified; J45.909 Unspecified asthma, uncomplicated; Z91.030 Bee allergy status; Z88.8 Allergy status to other drugs, medicaments and biological substances; Z88.2 Allergy status to sulfonamides; Z88.5 Allergy status to narcotic agent; Z79.899 Other long term (current) drug therapy; Z79.890 Hormone replacement therapy; V48.0XXA Car driver injured in noncollision transport accident in nontraffic accident, initial encounter; Y93.89 Activity, other specified
CPT/HCPCS: 82607; 82728; 82746; 83540; 83550; 99283; 99284